=== PATIENT | female | born 1980 | race Caucasian/White ===

== ENCOUNTER 2018-05-26 23:36 | Emergency (ER) | payer SELFPAY ==
[2018-05-27 00:28] VITALS: BP 113/77; PULSE 74; TEMP 98.2; BMI 20.5
[2018-05-27] MEDS ORDERED: ACETAMINOPHEN 500 MG TABLET (FP) PO ONE (01:06)
--- NOTE | 2018-05-27 01:11 | PDOC ---
Attending Attestation - Resident Resident Name: ReeseRomelia - ED Attending Attestation I have performed the following: I have examined & evaluated the patient, The case was reviewed & discussed with the resident, I agree w/resident's findings & plan - HPI HPI: 05/27/18 01:51 38yo with URI symptoms; Chest pain is right sidede>> left side.; Cough. - Physicial Exam PE: 05/28/18 21:23 Agree with resident exam - Medical Decision Making 05/28/18 21:23 Flu and strep negative; CXR normal; Pt will be discharged as a viral URI.
--- NOTE | 2018-05-27 01:16 | PDOC ---
History of Present Illness - General Chief Complaint: Cold Symptoms Stated Complaint: FLU Symptoms Time Seen by Provider: 05/27/18 00:59 History Source: Patient Exam Limitations: No Limitations - History of Present Illness Initial Comments: 05/27/18 01:09 [id number] without PMH who p/w 2 days of non-productive cough, sore throat, congestion, chest discomfort, and right-sided diffuse thorax discomfort. She has been taking cough medicine from [place] (where she lives). She denies any f /c/n/d/v/c, rash, abdominal pain, back pain, neck pain, [place], and denies any chance she may be . She has not had any sick contacts lately. Denies any personal h/o heart problems, smoking, or other risk factors. Has family h/o CAD and DM. Past History - Past Medical History Allergies/Adverse Reactions: Allergies Allergy/AdvReac Type Severity Reaction Status Date / Time No Known Allergies Allergy Verified 05/27/18 00:09 Home Medications: Ambulatory Orders NK [No Known Home Medication] 05/27/18 - Suicide/Smoking/Psychosocial Hx Smoking History: Never smoked Review of Systems - Review of Systems Able to Perform ROS?: Yes Comments:: 05/27/18 01:12 GEN: malaise, no fever, chills, generalized weakness, or weight change HEENT: no ear pain, sore throat, vision change, or eye pain CV: chest discomfort, no palpitations, lightheadedness, syncope, or edema RESP: cough, wheezing, or SOB GI: no abdominal pain, nausea, vomiting, diarrhea, constipation, or white/black/ bloody stool : no dysuria, hematuria, incontinence, retention, bleeding, or discharge MSK: no neck/back pain, muscle weakness/pain, or joint swelling/pain NEURO: finger tingling, no headache, seizure, vertigo, numbness, or focal weakness PSYCH: anxious, no substance use, no behavior change SKIN: no jaundice, no rash ROS otherwise negative except as noted in HPI *Physical Exam - Vital Signs Last Vital Signs Temp Pulse Resp BP Pulse Ox 98.2 F 74 19 113/77 98 05/27/18 00:05 05/27/18 00:05 05/27/18 00:05 05/27/18 00:05 05/27/18 00:05 - Physical Exam Comments: 05/27/18 01:16 GENERAL: well-appearing, A/Ox4, no distress, answers questions appropriately, pleasant Persian-speaking female, accompanied by family HEENT: no posterior pharyngeal erythema, no tonsillar swelling or exudates, PERRLA, EOMI, moist mucous membranes NECK/BACK: no midline ttp, no spinal stepoff or deformity, no hematoma, full ROM , neck supple CHEST WALL: no tenderness to compression, no rash, no costal stepoff or deformity CARDIOVASCULAR: regular rate/rhythm, normal S1S2, no MGR, strong peripheral pulses, capillary refill <2 seconds, extremities wwp, no edema LUNGS/RESPIRATORY: no respiratory distress, CTAB GI/ABDOMEN: symmetric [id number], normoactive BS, soft, no ttp, no midline pulsatile masses : no CVA tenderness EXTREMITIES: no muscle atrophy, no acute deformity, no edema SKIN: warm and dry, no pallor, no jaundice, no rash, no bruising, no skin breakdown, no cuts, no lesions NEUROLOGICAL: GCS 15, CN II-XII grossly intact, 5/5 strength proximally and distally, no facial droop Moderate Sedation - Procedure Monitoring Vital Signs: Procedure Monitoring Vital Signs Temperature 98.2 F 05/27/18 00:05 Pulse Rate 74 05/27/18 00:05 Respiratory Rate 19 05/27/18 00:05 Blood Pressure 113/77 05/27/18 00:05 O2 Sat by Pulse Oximetry (%) 98 05/27/18 00:05 ED Treatment Course - RADIOLOGY Radiology Studies Ordered: Category Date Time Status CHEST PA & LAT [RAD] Stat Radiology 05/27/18 01:07 Ordered Medical Decision Making - Medical Decision Making 05/27/18 01:17 Adult Pt p/w URI symptoms, vague chest discomfort, self-reported anxiety. Initial Vital Signs Temp Pulse Resp BP Pulse Ox 98.2 F 74 19 113/77 98 05/27/18 00:05 05/27/18 00:05 05/27/18 00:05 05/27/18 00:05 05/27/18 00:05 Exam: As noted in Physical Exam section. DDX IBNLT: URI or bronchitis/PNA, very unlikely to be PE, gastritis, PUD, cholecystitis, pleurisy, pleuritis, etc. Also could be musculoskeletal, panic/ anxiety, etc, but these are diagnoses of exclusion. W/U ordered: urine hCG, CXR, EKG TX ordered: Tylenol PO EKG: Reviewed; results as noted in ECG Review section. CXR: Nothing acute Laboratory Tests 05/27/18 05/27/18 01:17 01:37 Urine HCG, Qual Negative Influenza A (Rapid) Negative Influenza B (Rapid) Negative Patient is informed of negative swabs and CXR. The Pt is appropriate for discharge with close outpatient follow up. They are comfortable with this plan and will follow up with their primary care provider in 1-3 days. Specific return precautions are discussed and they will come back to the ER if necessary. She will take Tylenol or Motrin for any discomfort. *DC/Admit/Observation/Transfer Diagnosis at time of Disposition: Nasal congestion, Myalgia, Sore throat - Discharge Dispostion Disposition: HOME Condition at time of disposition: Stable Decision to Admit order: No - Referrals - Patient Instructions Additional Instructions: You were seen in the ER for body aches and flu-like symptoms. We did an exam, a chest x-ray, and a flu swab. The flu swab was negative and your chest x-ray looked normal. After our assessment, we do not believe you are having a medical emergency at this time, and we believe you are safe to go home. Please follow up with your primary care provider in 1-3 days. We are giving you referral information in case you need a new doctor. Call their clinic, tell them you were seen in the ER, and tell them you need a follow-up. If you have any new or worsening symptoms, especially difficulty breathing or severe chest pain or passing out, please come back to the ER at any time (24 hours a day). If you are having severe or life threatening symptoms, or symptoms that make it unsafe to drive or have someone drive you, please call 911. - Post Discharge Activity
[2018-05-27] MEDS ORDERED: ACETAMINOPHEN 325 MG TABLET (FP) ONE (01:22)
== END 2018-05-27 03:35 | disposition home or self-care (01) ==
LOC: JER 23:36
DX: J06.9 Acute upper respiratory infection, unspecified (principal)
CPT/HCPCS: 71046-TC-FY; 84703; 87804; 99282-25